=== PATIENT | male | born 1970 | race Caucasian/White ===

== ENCOUNTER 2024-03-27 08:27 | Inpatient (IN) | payer BC ==
[2024-03-27] MEDS ORDERED: Magnesium Sulfate 2gm IVPB 2 G/50 ML BAG IV ONE (08:44)
[2024-03-27] MEDS ORDERED: DIPHENHYDRAMINE 50 MG/ML VIAL ONE (08:44)
[2024-03-27] MEDS ORDERED: METOCLOPRAMIDE 10 MG/2mL INJ ONE (08:44)
[2024-03-27] MEDS ORDERED: NA CHLORIDE 0.9% 1,000 ML ONE (08:45)
[2024-03-27] MEDS ORDERED: NA CHLORIDE 0.9% 50 ML ONE (08:45)
[2024-03-27 08:46] LABS: Absolute Basophils 0.1 K/uL (0-0.5); Absolute Eosinophils 0.3 K/uL (0-0.5); Absolute Lymphocytes (CBC) 3.2 K/uL (0.7-4.9); Absolute Monocytes 0.8 K/uL (0.1-1.3); Absolute Neutrophil 5.4 K/uL (1.8-8.0); Basophils % 1.2 % (0-1.3); Hemoglobin 16.7 g/dL (13.6-17.9); Lymphocytes % 32.5 % (15.3-44.8); MCH 30.6 pg (27.0-35.0); MCHC 34.1 g/dL (32.0-36.0); MCV 89.6 fL (80-100); MPV 6.8 fL (7.6-11.3); Monocytes % 7.9 % (3.3-12.3); Neutrophils % 55.4 % (41.7-73.7); Nucleated Red Blood Cells % 0.3 % (0-0); Platelets 375 thou/uL (152-406); RBC Red Blood Cell Count 5.46 M/uL (4.33-5.43); Red Cell Distribution Width 13.7 % (12.1-15.2)
--- NOTE | 2024-03-27 08:58 | RAD REPORT ---
EXAM: CT Ct Stroke Brain Wo Cont HISTORY: STROKE ALERT COMPARISON: None TECHNIQUE: Multiple contiguous axial images were obtained for a CT of the brain without contrast. Sag ittal and coronal reformats were performed. One or more of the following dose reduction techniques were used: Automated exposure control, adjus tment of the mA and kV according to patient size, and iterative reconstruction. Unless otherwise specified, incidental findings do not require dedicated imaging follow-up. FINDINGS: No evidence of hydrocephalus, intracranial hemorrhage, or extra-axial fluid collection. The brain is normal in morphology. The calvarium is intact. The visualized paranasal sinuses and mastoid air cells are essentially clear . IMPRESSION: No evidence of acute intracranial abnormality. THIS REPORT CONTAINS FINDINGS THAT MAY BE CRITICAL TO PATIENT CARE. The findings were verbally commun icated via telephone to Pepe Buckley on 03/27/2024 8:55 AM.
[2024-03-27 08:59] LABS: PTT, Activated Partial Thromb 38.5 SECONDS (24.3-36.9)
--- NOTE | 2024-03-27 09:03 | RAD REPORT ---
EXAMINATION: CTA HEAD CLINICAL INDICATION: Male, 53 years old. samuel, l sided weakness TECHNIQUE: Axial CT images were obtained through the head after intravenous contrast utilizing angiog raphic protocol with 3D post-processing (maximum intensity projection images, volume rendered images and/or shaded surface rendered images). One or more of the following dose reduction technique s were used: Automated exposure control, adjustment of the mA and/or kV according to patient size, and/or iterative reconstruction. Unless otherwise specified, incidental findings do not require dedic ated imaging follow-up. COMPARISON: No prior exam. FINDINGS: ICA: The petrous, cavernous, and supraclinoid segments of the bilateral internal carotid arteries are normal. JEAN: Anterior cerebral arteries are normal bilaterally. The anterior communicating artery is patent. MCA: Middle cerebral arteries are normal bilaterally. LABORATORY MONITOR: Posterior cerebral arteries are patent bilaterally, although with mild to moderate multifocal na rrowing along the P1 segments bilaterally and distal right P2 segment. Vertebrobasilar: The vertebral arteries are patent. The basilar artery is normal in appearance. 3D images confirm these findings. IMPRESSION: No evidence of large vessel occlusion. Multifocal mild to moderate narrowing along the bilateral P1 segments and distal right P2 segment of the posterior cerebral arteries. Anterior mentasta of Perdomo vessels appear patent.
[2024-03-27 09:04] LABS: PT Prothrombin Time 12.7 SECONDS (9.4-12.5); Protime INR 1.21
--- NOTE | 2024-03-27 09:04 | RAD REPORT ---
EXAMINATION: CT Neck Angio CLINICAL INDICATION: Male, 53 years old. [facility] MAIN headache, left sided weakness Bed Name: 2 TECHNIQUE: Axial CT images were obtained from the aortic arch to the skull base after intravenous con trast utilizing angiographic protocol. Multiplanar reformats, as well as 3D post-processing (maximum intensity projection images, volume rendered images and/or shaded surface rendered images) w ere generated and reviewed. One or more of the following dose reduction techniques were used: Automated exposure control, adjustment of the mA and/or kV according to patient size, and/or iterativ e reconstruction. Unless otherwise specified, incidental findings do not require dedicated imaging follow-up. COMPARISON: No prior exam. FINDINGS: AORTA: The imaged aortic arch is normal. Normal three-vessel configuration of the arch. CCA: No artifact The common carotid arteries are patent and normal in caliber. ICA/ECA: Bilateral internal and external carotid arteries are patent. There is no significant interna l carotid artery stenosis. VERTEBRAL: The cervical vertebral arteries are patent to the skull base. Vertebral arteries are codom inant. SOFT TISSUE: No significant neck soft tissue abnormalities. The visualized lung apices are clear. C5-C7 anterior plating. 3D images confirm these findings. IMPRESSION: No significant flow abnormality of the neck vessels is identified. NASCET criteria used to quantify ICA stenosis, with the following grading scheme: Mild 0-49% stenosis Moderate 50-69% stenosis Severe 70-99% stenosis Reference: [place] Symptomatic Carotid Endarterectomy Trial Collaborators; Cathy VALDEZ, Khushbu CHAUHAN, Nadya RB, et al. Beneficial effect of carotid endarterectomy in symptomatic patients with high-grade carotid stenosis. N Engl J Med. 1990Sep 22;325(7):445-53.
[2024-03-27 09:11] LABS: Albumin 4.4 g/dL (3.4-5.0); Albumin/Globulin Ratio 1.3 (1.1-1.8); Anion Gap 9.9 mEq/L (5.0-15.0); Bilirubin Direct 0.2 mg/dL (0-0.2); Bilirubin Indirect, Calculated 0.3 mg/dL (0.2-0.8); Bilirubin Total 0.5 mg/dL (0.2-1.0); Globulin 3.5 g/dL (2.3-3.5); Magnesium 2.1 mg/dL (1.6-2.4); Potassium 3.9 mEq/L (3.5-5.1); Protein, Total 7.9 g/dL (6.4-8.2); Thyroid Stimulating Hormone 1.14 uIU/mL (0.358-3.740); Troponin High Sensitivity 16.7 pg/mL (<58.9)
--- NOTE | 2024-03-27 09:38 | RAD REPORT ---
EXAMINATION: ONE VIEW CHEST XR CLINICAL INDICATION: Male, 53 years old.,headache, left sided weakness TECHNIQUE: Frontal chest projection is submitted. Examination is limited by patient positioning and t echnique. COMPARISON: No prior exam. FINDINGS: The lungs are grossly clear although suboptimal inspiratory effort somewhat limits evaluation. No pn eumothorax or sizable effusion. The heart is normal in size. Mediastinal contours are unremarkable. IMPRESSION: No acute intrathoracic abnormalities.
[2024-03-27] MEDS ORDERED: ASPIRIN 325 MG TAB ONE (10:00)
--- NOTE | 2024-03-27 10:23 | EDPHYS ---
Physician Documentation [facility] Name: Bo Lehman Age: 53 yrs Sex: Male : 1970 Arrival Date: 03/27/2024 Time: 08:27 Bed 2 Private MD: ED Physician Pepe Buckley HPI: 03/27 09:35 This 53 yrs old Male presents to ER via Wheelchair with complaints of Vomiting, rt Headache. 09:35 Patient presents to the ED with 2 days of intermittent headache, left-sided weakness, rt numbness, spasticity. He had a speech disturbance during this time as well. Patient has been taking his migraine medicines to no relief. Denies other acute complaints at this time, symptoms are moderate in severity, no other aggravating or alleviating factors.. Historical: - Allergies: 08:37 unknown antibiotic, causes rash; ph - PMHx: 08:37 Hypothyroidism; Migraine; TIA; ph - Immunization history:: Adult Immunizations unknown. - Infectious Disease History:: Denies. - Social history:: Smoking status: unknown. ROS: 09:43 Constitutional: Negative for fever, chills, and weight loss, Cardiovascular: Negative rt for chest pain, palpitations, and edema, Respiratory: Negative for shortness of breath, cough, wheezing, and pleuritic chest pain, Skin: Negative for injury, rash, and discoloration, 09:43 Neuro: Positive for headache, speech changes, weakness, Exam: 09:43 Constitutional: This is a well developed, well nourished patient who is awake, alert, rt and in no acute distress. Head/Face: Normocephalic, atraumatic. Chest/axilla: Normal chest wall appearance and motion. Nontender with no deformity. No lesions are appreciated. Cardiovascular: Regular rate and rhythm with a normal S1 and S2. No gallops, murmurs, or rubs. Normal PMI, no JVD. No pulse deficits. Respiratory: Lungs have equal breath sounds bilaterally, clear to auscultation and percussion. No rales, rhonchi or wheezes noted. No increased work of breathing, no retractions or nasal flaring. Abdomen/GI: Soft, non-tender, with normal bowel sounds. No distension or tympany. No guarding or rebound. No evidence of tenderness throughout. 09:43 ECG was reviewed by the Attending Physician. 09:43 Neuro: Nonfluent speech noted, slight left-sided facial droop, spasticity noted to the left upper and left lower extremity, sensation is intact bilaterally. No other cranial nerve deficits, Vital Signs: 08:35 Pulse 105; Resp 20; Temp 97; Pulse Ox 97% on R/A; Weight 113.4 kg; Height 6 ft. 0 in. ; ko1 09:37 BP 140 / 83; Pulse 63; Pulse Ox 92% on R/A; rs6 19:15 BP 142 / 83; Pulse 65; Resp 18; Pulse Ox 100% on R/A; rg5 08:35 Body Mass Index 33.91 (113.40 kg, 182.88 cm) ko1 MDM: 08:36 Medical Screening Exam initiated rt 10:25 Differential diagnosis: Complex migraine, CVA, TIA. Data reviewed: vital signs, nurses rt notes, lab test result(s), EKG, radiologic studies. Consideration of Admission/Observation Patient was admitted/placed on observation. Management of patient was discussed with the following: Hospitalist: Agrees to admit. Independent interpretation of the following test(s) in the Emergency Department CT Scan: My interpretation is No intracranial hemorrhage seen on interpretation of CT scan images. Care significantly affected by the following chronic conditions: TIA, migraine. Counseling: I had a detailed discussion with the patient and/or guardian regarding the historical points, exam findings, and any diagnostic results supporting the discharge/admit diagnosis, lab results, radiology results, the need for further work-up and treatment in the hospital. Response to treatment: the patient's symptoms have resolved after treatment. 03/27 08:36 Order name: Basic Metabolic Panel; Complete Time: : rt 03/27 08:36 Order name: CBC with Diff; Complete Time: 09: rt 03/27 08:36 Order name: Hepatic Function; Complete Time: : rt 03/27 08:36 Order name: High Sensitivity Troponin; Complete Time: : rt 03/27 08:36 Order name: Magnesium; Complete Time: : rt 03/27 08:36 Order name: Protime (+inr); Complete Time: 09: rt 03/27 08:36 Order name: Ptt, Activated; Complete Time: 09: rt 03/27 08:36 Order name: CPK; Complete Time: 09: rt 03/27 08:36 Order name: TSH; Complete Time: 09:13 rt 03/27 09:04 Order name: CREATININE WHOLE BLOOD; Complete Time: 09:09 EDMS 03/27 12:07 Order name: NT PRO-BNP; Complete Time: 17:49 EDMS 03/27 12:07 Order name: T4 Free; Complete Time: 17:49 EDMS 03/27 12:07 Order name: Thyroid Stimulating Hormone; Complete Time: 17:49 EDMS 03/27 12:07 Order name: Urinalysis w/ reflexes EDMS 03/27 12:07 Order name: Basic Metabolic Panel EDMS 03/27 12:07 Order name: Basic Metabolic Panel EDMS 03/27 12:07 Order name: CBC with Automated Diff EDMS 03/27 12:07 Order name: CBC with Automated Diff EDMS 03/27 12:39 Order name: Troponin High Sensitivity EDMS 03/27 15:46 Order name: Troponin High Sensitivity; Complete Time: 17:49 EDMS 03/27 08:36 Order name: CT Head Angio; Complete Time: 09:09 rt 03/27 08:36 Order name: CT Neck Angio; Complete Time: 09:09 rt 03/27 08:36 Order name: CT Stroke Brain w/o Contrast; Complete Time: 09:09 rt 03/27 08:36 Order name: Stroke CXR 1 View; Complete Time: 09:49 rt 03/27 12:07 Order name: CONS Physician Consult EDMS 03/27 12:19 Order name: Physical Therapy Consult EDMS 03/27 08:36 Order name: Accucheck; Complete Time: 09:04 rt 03/27 08:36 Order name: Cardiac monitoring; Complete Time: 08:39 rt 03/27 08:36 Order name: EKG - Nurse/Tech; Complete Time: 09:33 rt 03/27 08:36 Order name: IV Saline Lock; Complete Time: 08:39 rt 03/27 08:36 Order name: Labs collected and sent; Complete Time: 08:39 rt 03/27 08:36 Order name: NPO; Complete Time: 08:39 rt 03/27 08:36 Order name: O2 Per Protocol; Complete Time: 08:39 rt 03/27 08:36 Order name: O2 Sat Monitoring; Complete Time: 08:39 rt 03/27 08:36 Order name: Stroke Swallow Screen; Complete Time: 09:33 rt EC:43 Rate is 66 beats/min. Rhythm is regular, 1st Degree Block with No ectopy. QRS [place] is rt Normal. LA interval is normal. QRS interval is normal. QT interval is normal. No Q waves. Clinical impression: NSR w/ Non-specific ST/T Changes. Administered Medications: 09:03 Drug: NS 0.9% IV 1000 ml IV at 1 bolus Per protocol; to be given as a bolus over 60 ph minutes Route: IV; Rate: 1 bolus; Site: right antecubital; 19:45 Follow up: IV Status: Completed infusion; IV Intake: 1000ml rg5 09:04 Drug: metoCLOPramide IVP 10 mg IVP once; over 1 to 2 minutes Route: IVP; Site: right antecubital; 09:19 Follow up: Response: No adverse reaction ko1 09:04 Drug: diphenhydrAMINE IVP 25 mg IVP once Route: IVP; Site: right antecubital; 09:19 Follow up: Response: No adverse reaction ko1 09:04 Drug: Magnesium Sulfate IVPB 2 grams IVPB once over 1 hrs Route: IVPB; Infused Over: 1 ph hrs; Site: right antecubital; 09:46 Follow up: Response: No adverse reaction; IV Status: Completed infusion; IV Intake: ko1 100ml 10:01 Drug: Aspirin PO 325 mg PO once Route: PO; ko1 19:45 Follow up: Response: No adverse reaction rg5 Disposition Summary: 03/27/24 10:21 Hospitalization Ordered Notes: Hospitalization Status: Observation rt Provider: Jean Brunson rt Condition: Stable rt Problem: new rt Symptoms: have improved rt Bed/Room Type: Standard rt Location: Telemetry/MedSurg (observation)(03/27/24 18:15) bd Room Assignment: 203(03/27/24 18:15) bd Diagnosis - left sided weakness rt Forms: - Medication Reconciliation Form rt - SBAR form rt - Leadership Thank You Letter rt Signatures: Dispatcher [employer] EDMS Sarah Stringer Patricia, RN RN ph Peltier, Brian, RN RN bp Oliver, Kathy, RN RN ko1 Pepe Buckley MD MD rt Chandan Amin RN rg5 Corrections: (The following items were deleted from the chart) 08:36 08:36 BASIC METABOLIC PANEL+C.LAB.BRZ ordered. EDMS EDMS 08:36 08:36 CBC+H.LAB.BRZ ordered. EDMS EDMS 08:36 08:36 HEPATIC FUNCTION+C.LAB.BRZ ordered. EDMS EDMS 08:36 08:36 Troponin High Sensitivity+C.LAB.BRZ ordered. EDMS EDMS 08:36 08:36 MAGNESIUM+C.LAB.BRZ ordered. EDMS EDMS 08:36 08:36 PROTIME (+INR)+COAG.LAB.BRZ ordered. EDMS EDMS 08:36 08:36 PTT, ACTIVATED+COAG.LAB.BRZ ordered. EDMS EDMS 08:36 08:36 CREATINE PHOSPHOKINASE+C.LAB.BRZ ordered. EDMS EDMS 08:36 08:36 THYROID STIMULAT HORMONE+C.LAB.BRZ ordered. EDMS EDMS 08:37 08:36 CT-STROKE BRAIN W/O CONTRAST+CT.RAD.BRZ ordered. EDMS EDMS 08:37 08:37 Chest Single View+RAD.RAD.BRZ ordered. EDMS EDMS 08:38 08:37 Home Meds: TIA; ph ph 12:13 10:21 Telemetry/MedSurg (observation) rt bp 12:13 10:21 rt bp 18:15 12:13 [facility] ER HOLD bp bd 18:15 12:13 ERHOLD- bp bd
--- NOTE | 2024-03-27 10:23 | ER ---
Nurse's Notes [facility] Name: Bo Lehman Age: 53 yrs Sex: Male : 1970 Arrival Date: 03/27/2024 Time: 08:27 Bed 2 Private MD: Diagnosis: left sided weakness Presentation: 03/27 08:35 Chief complaint: Patient states: Headache, trouble speaking, N/V and muscle spasms that ph started Wednesday, states that this has happened before and was dx w/ TIA and migraine, takes PRN medications for symptoms but did not help. Coronavirus screen: Vaccine status: Patient reports receiving the 2nd dose of the covid vaccine. Ebola Screen: No symptoms or risks identified at this time. Initial Sepsis Screen: Does the patient meet any 2 criteria? No. Patient's initial sepsis screen is negative. Does the patient have a suspected source of infection? No. Patient's initial sepsis screen is negative. Risk Assessment: Do you want to hurt yourself or someone else? Patient reports no desire to harm self or others. Onset of symptoms was March 27, 2024. 08:35 Method Of Arrival: Wheelchair ph 08:35 Acuity: MISHA 2 ph Historical: - Allergies: 08:37 unknown antibiotic, causes rash; ph - PMHx: 08:37 Hypothyroidism; Migraine; TIA; ph - Immunization history:: Adult Immunizations unknown. - Infectious Disease History:: Denies. - Social history:: Smoking status: unknown. Screenin:40 [facility] ED Fall Risk Assessment (Adult) History of falling in the last 3 months, ko1 including since admission No falls in past 3 months (0 pts) Confusion or Disorientation No (0 pts) Intoxicated or Sedated No (0 pts) Impaired Gait No (0 pts) Mobility Assist Device Used No (0 pt) Altered Elimination No (0 pt) Score/Fall Risk Level 0 - 2 = Low Risk Oriented to surroundings, Maintained a safe environment, Educated pt \T\ family on fall prevention, incl call for assistance when getting out of bed, Assessed \T\ reinforced patient's understanding of fall precautions, Hourly rounding (assess needs \T\ fall precautionary measures) done. Abuse screen: Denies threats or abuse. Denies injuries from another. Nutritional screening: No deficits noted. Tuberculosis screening: No symptoms or risk factors identified. Assessment: 08:42 General: Appears distressed, Behavior is cooperative, appropriate for age. Pain: ko1 Complains of pain in headache, generalized body spasms. Neuro: Taylor Agitation-Sedation Scale (RASS): 0 - Alert and Calm Level of Consciousness is awake, alert, obeys commands, Oriented to person, place, time, situation, Appropriate for age. Cardiovascular: No deficits noted. Respiratory: No deficits noted. GI: Abdomen is flat, non-distended. : No deficits noted. No signs and/or symptoms were reported regarding the genitourinary system. EENT: No deficits noted. No signs and/or symptoms were reported regarding the EENT system. Derm: No deficits noted. No signs and/or symptoms reported regarding the dermatologic system. Musculoskeletal: spasms. Vital Signs: 08:35 Pulse 105; Resp 20; Temp 97; Pulse Ox 97% on R/A; Weight 113.4 kg; Height 6 ft. 0 in. ; ko1 09:37 BP 140 / 83; Pulse 63; Pulse Ox 92% on R/A; rs6 19:15 BP 142 / 83; Pulse 65; Resp 18; Pulse Ox 100% on R/A; rg5 08:35 Body Mass Index 33.91 (113.40 kg, 182.88 cm) ko1 ED Course: 08:29 Patient arrived in ED. mr 08:35 Pepe Buckley MD is Attending Physician. rt 08:37 Triage completed. ph 08:38 Arm band placed on Patient placed in an exam room, on a stretcher, on monitoring engineer, ph on pulse oximetry. 08:39 CPK Sent. ko1 08:39 TSH Sent. ko1 08:39 Basic Metabolic Panel Sent. ko1 08:39 CBC with Diff Sent. ko1 08:39 Hepatic Function Sent. ko1 08:39 High Sensitivity Troponin Sent. ko1 08:39 Magnesium Sent. ko1 08:39 Protime (+inr) Sent. ko1 08:39 Ptt, Activated Sent. ko1 08:40 Patient has correct armband on for positive identification. Allergy band placed. Bed in ko1 low position. Call light in reach. Side rails up X2. Provided Education on: labs. Client placed on continuous cardiac and pulse oximetry monitoring. NIBP monitoring applied. monitor worker on. Door closed. Noise minimized. Lights dimmed. Warm blanket given. Pillow given. 08:40 Initial lab(s) drawn, by me, sent to lab. Inserted saline lock: 18 gauge in right ko1 antecubital area, using aseptic technique. Blood collected. Flushed with 10 mL NS. 08:42 Rhianna Whitley, RN is Primary Nurse. ko1 08:51 CT Head Angio In Process Unspecified. EDMS 08:51 CT Neck Angio In Process Unspecified. EDMS 08:51 CT Stroke Brain w/o Contrast In Process Unspecified. EDMS 09:22 Stroke CXR 1 View In Process Unspecified. EDMS 09:50 No provider procedures requiring assistance completed. ko1 10:19 Jean Brunson MD is Hospitalizing Provider. rt 13:19 Patient admitted, IV remains in place. bp 19:15 Patient admitted, IV remains in place. intact, No redness/swelling at site. rg5 Administered Medications: 09:03 Drug: NS 0.9% IV 1000 ml IV at 1 bolus Per protocol; to be given as a bolus over 60 ph minutes Route: IV; Rate: 1 bolus; Site: right antecubital; 19:45 Follow up: IV Status: Completed infusion; IV Intake: 1000ml rg5 09:04 Drug: metoCLOPramide IVP 10 mg IVP once; over 1 to 2 minutes Route: IVP; Site: right antecubital; 09:19 Follow up: Response: No adverse reaction ko1 09:04 Drug: diphenhydrAMINE IVP 25 mg IVP once Route: IVP; Site: right antecubital; ph 09:19 Follow up: Response: No adverse reaction ko1 09:04 Drug: Magnesium Sulfate IVPB 2 grams IVPB once over 1 hrs Route: IVPB; Infused Over: 1 ph hrs; Site: right antecubital; 09:46 Follow up: Response: No adverse reaction; IV Status: Completed infusion; IV Intake: ko1 100ml 10:01 Drug: Aspirin PO 325 mg PO once Route: PO; ko1 19:45 Follow up: Response: No adverse reaction rg5 Medication: 09:50 VIS not applicable for this client. ko1 Intake: 09:46 IV: 100ml; Total: 100ml. ko1 19:45 IV: 1000ml; Total: 1100ml. rg5 Output: 10:14 Urine: 700ml (Voided); Total: 700ml. ko1 Outcome: 10:21 Decision to Hospitalize by Provider. rt 13:19 Admitted to ER Hold. Please see [facility] for further documentation. bp 13:19 Condition: stable 13:19 Instructed on the need for admit, 19:44 Patient left the ED. rg5 Signatures: Dispatcher [employer] EDMS Magaly Lara, Reg Reg mr ThurstonBlank, RN RN ph Wilfred Earl, RN RN bp Rhianna Whitley RN RN ko1 Pepe Buckley MD MD rt Chandan Amin RN RN rg5 Pepe Mcpherson rs6 Corrections: (The following items were deleted from the chart) 08:38 08:37 Home Meds: TIA; ph ph 08:44 08:35 Pulse 211bpm; Resp 20bpm; Pulse Ox 97% RA; Temp 97F; 113.4 kg; Height 6 ft. 0 ko1 in.; BMI: 33.9; ph 09:50 09:50 BP 140 / 83; Pulse 65bpm; Resp 15bpm; Pulse Ox 98%; ko1 ko1
[2024-03-27] MEDS ORDERED: ACETAMINOPHEN 500 MG TAB PO PRN (11:49)
[2024-03-27] MEDS ORDERED: ONDANSETRON 4 MG/2 ML VIAL IV PRN (11:49)
--- NOTE | 2024-03-27 12:39 | P.HP ---
Certification for Inpatient Patient admitted to: Inpatient With expected LOS: >2 Midnights Patient will require the following post-hospital care: None Practitioner: I am a practitioner with admitting privileges, knowledge of patient current condition, hospital course, and medical plan of care. Services: Services provided to patient in accordance with Admission requirements found in Title 42 Section 412.3 of the Code of Federal Regulations Patient History Date of Service: 03/27/24 Reason for admission: Headache, left-sided weakness History of Present Illness: Patient is a 53-year-old male with a past medical history significant for hypothyroidism, TIA, complex migraine headache who presents with complaint of headache and left-sided weakness. Patient reports a remote history of complex migraine headache and had similar presentations a couple of years ago. Patient reported that 2 days ago he started experiencing episodes of headache, generalized muscle spasticity, left-sided weakness, intermittent expressive aphasia and slurred speech. Patient reported that he was unable to ambulate. Patient reported associated signs and symptoms of blurry vision, dizziness, nausea and vomiting. Patient reported that symptoms abated 2 days ago but this morning patient had a resurgence of symptoms. Patient denies any other signs and symptoms. Symptoms are aggravated or relieved by nothing. Patient decided to present to the hospital for medical evaluation. Allergies No Known Allergies Allergy (Unverified 03/27/24 13:19) Home medications list reviewed: No - Past Medical/Surgical History Has patient received pneumonia vaccine in the past: No Diabetic: No Past Medical History: Reviewed- Non-Contributory -: Complex migraine headache -: Hypothyroidism -: TIA. Past Surgical History: Reviewed- Non-Contributory -: Cervical fusion - Social History Smoking Status: Current some day smoker (Smokes cigars) Counseled patient to stop smoking for: less than 10 minutes Smoking therapy provided: Yes Patient receptive to therapy: Yes Alcohol use: No CD- Drugs: No Caffeine use: No Place of Residence: Home Review of Systems General: Weakness Eyes: Vision Change ENT: Unremarkable Respiratory: Shortness of Breath Cardiovascular: Unremarkable Gastrointestinal: Nausea, Abdominal Pain Genitourinary: Unremarkable Musculoskeletal: Unremarkable Integumentary: Unremarkable Neurological: Weakness, Change in Speech Lymphatics: Unremarkable Physical Examination - Physical Exam General: Alert, In no apparent distress, Oriented x3, Cooperative HEENT: Atraumatic, PERRLA, Mucous membr. moist/pink, EOMI, Sclerae nonicteric Neck: Supple, 2+ carotid pulse no bruit, No LAD, Without JVD or thyroid abnormality Respiratory: Clear to auscultation bilaterally, Normal air movement Cardiovascular: No edema, Regular rate/rhythm, Normal S1 S2 Capillary refill: <2 Seconds Gastrointestinal: Normal bowel sounds, Soft and benign, No tenderness Musculoskeletal: No clubbing, No swelling, No contractures, No tenderness Integumentary: No rashes, No significant lesion, No tenderness/swelling Neurological: Normal strength at 5/5 x4 extr, Normal tone, Normal affect, Abnormal gait, Abnormal speech Lymphatics: No axilla or inguinal lymphadenopathy - Studies Laboratory Data (last 24 hrs) 03/27/24 03/27/24 03/27/24 08:35 08:35 08:35 WBC 9.70 Hgb 16.7 Hct 49.0 Plt Count 375 PT 12.7 H INR 1.21 APTT 38.5 H Sodium 137 Potassium 3.9 BUN 19 H Creatinine 1.04 Glucose 113 H Magnesium 2.1 Total Bilirubin 0.5 AST 19 ALT 27 Alkaline Phosphatase 91 Assessment and Plan - Plan Left-sided weakness TIA Complex migraine headache Muscle spasticity --CT stroke brain unremarkable for any acute intracranial abnormality. --CTA head\Neck unremarkable for any LVO or stenosis. --Neurology consulted. Recommendations appreciated. --PT eval and treat. --Continue Fioricet and Tylenol as needed. --Echocardiogram to assess for any cardioembolic source of TIA . --Further management per neurologist. --Fall precautions. Hypothyroidism --Continue home medications. Nausea and vomiting. --Antiemetic on board Nicotine dependence. --Patient reports that he smokes cigars. --Patient counseled on tobacco cessation. Class I obesity. --Likely secondary to excess caloric intake. --Patient counseled on weight reduction, diet and excise therapy. DVT prophylaxis with Lovenox subQ. Discharge Plan: Home Plan to discharge in: 72 Hours - Advance Directives Does patient have a Living Will: No Does patient have a Durable POA for Healthcare: No - Code Status/Comfort Care Code Status Assessed: Yes Code Status: Full Code Physician Review: Patient Assessed, Agree with Above Assessment and Plan Critical Care: No
[2024-03-27 15:45] LABS: Thyroid Stimulating Hormone 1.84 uIU/mL (0.358-3.740); Troponin High Sensitivity 19.3 pg/mL (<58.9)
[2024-03-27 16:54] VITALS: BMI 33.9
[2024-03-27] MEDS: ENOXAPARIN 40 MG/0.4 ML SQ SCH (17:00)
[2024-03-27] MEDS: MORPHINE 4 MG/ML SYR IV ONE (20:04)
[2024-03-27 20:05] VITALS: O2SAT 92
[2024-03-27] MEDS: HYDROCODONE/APAP 10/325 TAB PO PRN (23:02)
[2024-03-28 05:16] LABS: Absolute Basophils 0.1 K/uL (0-0.5); Absolute Eosinophils 0.4 K/uL (0-0.5); Absolute Lymphocytes (CBC) 3.7 K/uL (0.7-4.9); Absolute Monocytes 0.6 K/uL (0.1-1.3); Absolute Neutrophil 4.5 K/uL (1.8-8.0); Basophils % 1.2 % (0-1.3); Eosinophils % 4.7 % (0-4.4); Hematocrit 41.7 % (39.6-49.0); Hemoglobin 14.2 g/dL (13.6-17.9); Lymphocytes % 39.6 % (15.3-44.8); MCH 30.8 pg (27.0-35.0); MCHC 34.2 g/dL (32.0-36.0); MCV 90.1 fL (80-100); Monocytes % 6.4 % (3.3-12.3); Neutrophils % 48.1 % (41.7-73.7); Platelets 305 thou/uL (152-406); RBC Red Blood Cell Count 4.63 M/uL (4.33-5.43); Red Cell Distribution Width 13.9 % (12.1-15.2)
[2024-03-28 05:30] LABS: Anion Gap 6.2 mEq/L (5.0-15.0); Potassium 4.2 mEq/L (3.5-5.1)
--- NOTE | 2024-03-28 07:23 | RAD REPORT ---
EXAM: CT brain without contrast HISTORY: Dysarthria COMPARISON: March 27, 2024 TECHNIQUE: Multiple contiguous axial images were obtained and a CT of the brain without contrast.. Sagittal and coronal reconstruction performed. Automated exposure control, adjustment of the mA and/or kV according to patient size, and/or iterative reconstruction. Unless otherwise specified, incidental f indings do not require dedicated imaging follow-up FINDINGS: An intracranial bleed is not seen Ventricles are normal caliber No extra-axial fluid collection noted No significant hypodensity within the brain No fluid within the visualized sinuses or mastoids noted. IMPRESSION: No acute intracranial abnormality noted. If the patient continues to have symptoms to suggest an acute intracranial abnormality then MRI of th e brain would be recommended.
[2024-03-28] MEDS: ASPIRIN 81 MG CHEWABLE TABLET PO SCH (08:35)
[2024-03-28] MEDS: ACETAMIN/CAFFEINE/BUTALB TAB PO PRN (09:22)
[2024-03-28] MEDS: Magnesium Sulfate 2gm IVPB 2 G/50 ML BAG IV ONE ×2 (09:25→17:08)
--- NOTE | 2024-03-28 09:27 | P.PN ---
Date of Service: 03/28/24 Subjective During examination, patient started muscle cramping to left hand and left leg Called Dr. Ba, administered depakote, magnesium, and valium, EEG in the AM 2 gm magnesium IV 1 gram depakote IV 5 mg diazapem ROS 10 point ROS as noted above, otherwise negative Physical Exam General: Alert and Oriented x3, distress HEENT: Atraumatic, PERRLA, Mucous membr. moist/pink, EOMI, Sclerae nonicteric Neck: Supple, 2+ carotid pulse no bruit, No LAD, Without JVD or thyroid abnormality Respiratory: Clear BBS Normal air movement, on NC Cardiovascular: No edema, RRR Normal S1 S2 Capillary refill: <2 Seconds Gastrointestinal: Normal active bowel sounds, Soft on palpation, NT Musculoskeletal: bilateral peripheral pulses present Integumentary: No rashes, No significant lesion, No tenderness/swelling Neurological: Seizure activity, left sided muscle Vitals Reviewed Problem list Left-sided weakness CVA vs TIA ruled out Complex migraine headache Seizure activity Muscle spasticity Hypothyroidism Nausea and vomiting Nicotine dependence Class I obesity Assessment and Plan Left-sided weakness CVA vs TIA ruled out Complex migraine headache Seizure activity Muscle spasticity -CT stroke brain unremarkable for any acute intracranial abnormality. -CTA head\\Neck unremarkable for any LVO or stenosis. -MRI head W/Wo contrast reports "No acute intracranial abnormality seen." --Neurology consulted. Recommended depakote, mangesium, valium, EEG in the AM --PT consulted --Continue Fioricet and Tylenol as needed --Echocardiogram to assess for any cardioembolic source of TIA --Fall precautions Hypothyroidism --Continue home medications Nausea and vomiting -Antiemetics -advanced diet as tolerated Nicotine dependence --Patient reports that he smokes cigars --Patient counseled on tobacco cessation Class I obesity --Likely secondary to excess caloric intake --Patient counseled on weight reduction, diet and excise therapy DVT prophylaxis with Lovenox subQ Discharge Plan: Home Plan to discharge in: 1-2 days
[2024-03-28] MEDS: DIVALPROEX DR 250 MG TAB PO SCH (09:30)
[2024-03-28] MEDS: MAGNESIUM SULFATE 1 gm IVPB 1 GM/100 ML BAG IV ONE ×2 (09:34→09:45)
[2024-03-28] MEDS: DIAZEPAM 10 MG/2 ML INJ SYRINGE IV ONE ×2 (09:34→16:57)
[2024-03-28] MEDS: VALPROATE SODIUM IV ONE (09:43)
[2024-03-28] MEDS: NA CHLORIDE 0.9% IV ONE (09:43)
[2024-03-28] MEDS ORDERED: VALPROATE SODIUM IV SCH ×2 (09:45→21:00)
[2024-03-28] MEDS ORDERED: NA CHLORIDE 0.9% IV SCH ×2 (09:45→21:00)
--- NOTE | 2024-03-28 11:47 | RAD REPORT ---
EXAMINATION: MRI BRAIN WITHOUT AND WITH CONTRAST CLINICAL INDICATION: Aphasia TECHNIQUE: Multiplanar multisequence MR images of the brain were obtained without and with intravenous contrast. 20 cc MultiHance administered intravenously. COMPARISON: Head CT March 28, 2023 FINDINGS: No significant abnormal signal within the brain. Diffusion weighted/ADC mapping images do not reveal evidence of an acute infarction No abnormal enhancement within the brain visualized. Ventricles are normal caliber No extra-axial fluid collection No fluid within the visualized sinuses/mastoids. IMPRESSION: No acute intracranial abnormality seen.
[2024-03-28] MEDS: carBAMazepine 200 MG TAB PO SCH (17:31)
[2024-03-28 18:01] LABS: Magnesium 3.1 mg/dL (1.6-2.4); Phosphorus 2.9 mg/dL (2.5-4.9)
[2024-03-28] MEDS: NA CHLORIDE 0.9% IV SCH (20:40)
[2024-03-28] MEDS: VALPROATE SODIUM IV SCH (20:40)
[2024-03-29] MEDS: LORazepam 2 MG/ML VIAL ONE (02:55)
[2024-03-29] MEDS: LORazepam 2 MG/ML VIAL IV ONE (03:04)
[2024-03-29] MEDS: LEVOTHYROXINE SOD 0.112 MG TAB PO SCH (05:42)
[2024-03-29 05:43] LABS: Anion Gap 7.1 mEq/L (5.0-15.0); Magnesium 2.3 mg/dL (1.6-2.4); Phosphorus 2.5 mg/dL (2.5-4.9); Potassium 4.1 mEq/L (3.5-5.1)
[2024-03-29 05:59] LABS: Absolute Basophils 0.1 K/uL (0-0.5); Absolute Eosinophils 0.5 K/uL (0-0.5); Absolute Lymphocytes (CBC) 2.7 K/uL (0.7-4.9); Absolute Monocytes 0.6 K/uL (0.1-1.3); Absolute Neutrophil 3.8 K/uL (1.8-8.0); Basophils % 1.2 % (0-1.3); Hematocrit 44.2 % (39.6-49.0); Hemoglobin 14.9 g/dL (13.6-17.9); Lymphocytes % 35.6 % (15.3-44.8); MCH 30.3 pg (27.0-35.0); MCHC 33.7 g/dL (32.0-36.0); MCV 90.1 fL (80-100); MPV 7.4 fL (7.6-11.3); Monocytes % 7.3 % (3.3-12.3); Neutrophils % 49.9 % (41.7-73.7); Nucleated Red Blood Cells % 0.2 % (0-0); Platelets 347 thou/uL (152-406); RBC Red Blood Cell Count 4.91 M/uL (4.33-5.43); Red Cell Distribution Width 13.7 % (12.1-15.2)
[2024-03-29] MEDS ORDERED: DIVALPROEX DR 500MG TAB PO SCH (07:00)
[2024-03-29] MEDS: DIAZEPAM 10 MG/2 ML INJ SYRINGE ONE (07:56)
[2024-03-29] MEDS: Magnesium Sulfate 2gm IVPB 2 G/50 ML BAG IV ONE (08:19)
[2024-03-29] MEDS: POTASS/SODIUM PHOSPHATE 1 PKT POWD.PACK PO SCH (12:02)
--- NOTE | 2024-03-29 12:33 | P.PN ---
Date of Service: 03/29/24 Subjective Multiple left extremity contractions with seizure like activity EEG during an episode, Joshua reports no seizure activity at that time, oxygen level stable during episode Dr. Ba called, he will further evaluate EEG results and provide further recommendations Treated with IV magnesium 2 gram and diazepam ROS 10 point ROS as noted above, otherwise negative Physical Exam General: AAO x3, distress HEENT: Atraumatic, PERRLA, MMM, EOMI Neck: Supple, 2+ carotid pulse no bruit, No LAD, Without JVD or thyroid abnormality Respiratory: Nonlabored breathing, Clear BBS, on NC Cardiovascular: No edema, RRR Normal S1 S2 Capillary refill: <2 Seconds Gastrointestinal: Normal active bowel sounds, Soft on palpation, NT Musculoskeletal: bilateral peripheral pulses present Integumentary: No rashes, No significant lesion, No tenderness/swelling Neurological: Seizure activity, left sided muscle contraction Vitals Reviewed Problem list Left-sided weakness CVA vs TIA ruled out Complex migraine headache Seizure activity Muscle spasticity Hypothyroidism Nausea and vomiting Nicotine dependence Class I obesity Assessment and Plan Left-sided weakness CVA vs TIA ruled out Complex migraine headache Seizure activity Muscle spasticity -CT stroke brain unremarkable for any acute intracranial abnormality. -CTA head\\Neck unremarkable for any LVO or stenosis. -MRI head W/Wo contrast reports "No acute intracranial abnormality seen." --Neurology consulted. Recommended depakote, mangesium, valium, EEG Results pending --PT consulted --Continue Fioricet and Tylenol as needed --Echocardiogram to assess for any cardioembolic source of TIA --Fall precautions Hypothyroidism --Continue home medications Nausea and vomiting -Antiemetics -advanced diet as tolerated Nicotine dependence --Patient reports that he smokes cigars --Patient counseled on tobacco cessation Class I obesity --Likely secondary to excess caloric intake --Patient counseled on weight reduction, diet and excise therapy Interval hospital course: 03/29/24 Continued seizure like episodes associated with headache Will continue to treat with magnesium IV, diazepam, depakote, and tegratol Dr. Ba will decide on Qulipta or ubrelvy and will review EEG results EEG this morning during episode, joshua reports no seizure activity at that time DVT prophylaxis with Lovenox subQ Discharge Plan: Home Plan to discharge in: 1-2 days
--- NOTE | 2024-03-29 14:29 | EEG ---
CHART: [id number] TEST ID#: [id number] DATE OF STUDY: 03/29/2024 THE EEG WAS RECORDED PORTABLE IN THE PATIENT'S ROOM ON A 17 CHANNEL MACHINE. ELECTRODES WERE APPLIED IN THE USUAL MANNER USING THE INTERNATIONAL 10-20 SYSTEM. THE WAKING BACKGROUND RHYTHM IN THIS RECORD CONSISTS OF VERY WELL DEVELOPED AND WELL ORGANIZED WAVES OF 8.5-9 HZ., MAXIMAL IN THE POSTERIOR HEAD REGIONS WHICH ATTENUATE NORMALLY WITH EYE OPENING. LOW-VOLTAGE 18-22 HZ IS EXPRESSED IN THE FRONTAL REGIONS. THERE ARE NO FOCAL OR LATERALIZING FEATURES. NO EPILEPTIFORM ACTIVITY APPEARS. SLEEP DID NOT OCCUR. HYPERVENTILATION WAS NOT PERFORMED. PHOTIC STIMULATION PRODUCED NO DRIVING BILATERALLY. IMPRESSION: NORMAL EEG FOR THE AGE OF THE PATIENT IN [place].
--- NOTE | 2024-03-29 15:24 | P.DS ---
Admission Date: 03/27/24 Discharge Date: 03/29/24 Disposition: ROUTINE DISCHARGE Reason for Admission: Headache, left-sided weakness Brief History of Present Illness: Diagnosis Left-sided weakness CVA vs TIA ruled out Complex migraine headache Seizure activity Muscle spasticity Hypothyroidism Nausea and vomiting Nicotine dependence Class I obesity [facility] 03/27/2024 Patient is a 53-year-old male with a past medical history significant for hypothyroidism, TIA, complex migraine headache who presents with complaint of headache and left-sided weakness. Patient reports a remote history of complex migraine headache and had similar presentations a couple of years ago. Patient reported that 2 days ago he started experiencing episodes of headache, generalized muscle spasticity, left-sided weakness, intermittent expressive a phasia and slurred speech. Patient reported that he was unable to ambulate. Patient reported associated signs and symptoms of blurry vision, dizziness, nausea and vomiting. Patient reported that symptoms abated 2 days ago but this morning patient had a resurgence of symptoms. Patient denies any other signs and symptoms. Symptoms are aggravated or relieved by nothing. Patient decided to present to the hospital for medical evaluation. Hospital Course: Patient was admitted and treated for the following diagnoses Left-sided weakness CVA vs TIA ruled out Complex migraine headache Seizure activity Muscle spasticity -CT stroke brain unremarkable for any acute intracranial abnormality. -CTA head\\Neck unremarkable for any LVO or stenosis. -MRI head W/Wo contrast reports "No acute intracranial abnormality seen." --Neurology consulted. Recommended depakote, mangesium, valium, EEG Results pending --PT consulted --Continue Fioricet and Tylenol as needed --Echocardiogram to assess for any cardioembolic source of TIA --Fall precautions Hypothyroidism --Continue home medications Nausea and vomiting -Antiemetics -advanced diet as tolerated Nicotine dependence --Patient reports that he smokes cigars --Patient counseled on tobacco cessation Class I obesity --Likely secondary to excess caloric intake --Patient counseled on weight reduction, diet and excise therapy On 03/29/2024, Bo was seen on morning rounds and deemed hemodynamically stable. Dr. Ba has evaluated and cleared for discharge. Verapamil 40 mg 3 times daily has been sent to the pharmacy, and Bo will go to Dr. 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 Physical Exam General: AAO x3, distress HEENT: Atraumatic, PERRLA, MMM, EOMI Neck: Supple, 2+ carotid pulse no bruit, No LAD, Without JVD or thyroid abnormality Respiratory: Nonlabored breathing, Clear BBS, on NC Cardiovascular: No edema, RRR Normal S1 S2 Capillary refill: <2 Seconds Gastrointestinal: Normal active bowel sounds, Soft on palpation, NT Musculoskeletal: bilateral peripheral pulses present Integumentary: No rashes, No significant lesion, No tenderness/swelling Neurological: Seizure activity, left sided muscle contraction Vital Signs/Physical Exam: Temp Pulse Resp BP Pulse Ox 98.0 F 69 16 119/74 98 03/29/24 12:00 03/29/24 12:00 03/29/24 12:00 03/29/24 12:00 03/29/24 12:00 Laboratory Data at Discharge: WBC 7.50 thou/uL (4.3-10.9) 03/29/24 05:01 Hgb 14.9 g/dL (13.6-17.9) 03/29/24 05:01 Hct 44.2 % (39.6-49.0) 03/29/24 05:01 Plt Count 347 thou/uL (152-406) 03/29/24 05:01 PT 12.7 SECONDS (9.4-12.5) H 03/27/24 08:35 INR 1.21 03/27/24 08:35 APTT 38.5 SECONDS (24.3-36.9) H 03/27/24 08:35 Sodium 137 mEq/L (136-145) 03/29/24 05:01 Potassium 4.1 mEq/L (3.5-5.1) 03/29/24 05:01 BUN 13 mg/dL (7-18) 03/29/24 05:01 Creatinine 0.85 mg/dL (0.70-1.30) 03/29/24 05:01 Glucose 97 mg/dL (74-106) 03/29/24 05:01 Phosphorus 2.5 mg/dL (2.5-4.9) 03/29/24 05:01 Magnesium 2.3 mg/dL (1.6-2.4) 03/29/24 05:01 Total Bilirubin 0.5 mg/dL (0.2-1.0) 03/27/24 08:35 AST 19 U/L (15-37) 03/27/24 08:35 ALT 27 U/L (16-61) 03/27/24 08:35 Alkaline Phosphatase 91 U/L (45-117) 03/27/24 08:35 LDL Cholesterol Direct Cancelled 03/28/24 Unknown Lipase 23 U/L (13-75) 03/28/24 17:37 Home Medications: Levothyroxine [Synthroid*] 220 mcg PO [id number] 03/28/24 Verapamil HCl [Calan*] 40 mg PO TID 30 Days #90 tab 03/29/24 New Medications: Verapamil HCl [Calan*] 40 mg PO TID 30 Days #90 tab Physician Discharge Instructions: 1. Please call and schedule a follow-up appointment with your PCP in 3-5 days - Please follow-up with your PCP for medication refills/adjustments 2. Please call and schedule a follow-up appointment with Dr. 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 Continue regular diet 4. activity restrictions fall precautions 5. Return to the ED if symptoms worsen DO NOT DRIVE UNTIL CLEARED BY NEUROLOGY New medications Verapamil 40 mg 3 times daily, please be certain with the milligrams per tablet Diet: Regular Activity: Fall precautions Followup: Juan J Hair MD [Primary Care Provider] - Valdez Ba MD [ASSOCIATE-ACTIVE - CAN ADMIT] -
[2024-03-29] MEDS: VERAPAMIL HCL 80 MG TABLET PO SCH (16:08)
[2024-03-29 16:10] VITALS: BP 125/71
[2024-03-29 17:27] VITALS: TEMP 97.6
--- NOTE | 2024-03-29 19:45 | CON ---
Reason For Consultation: Consultation called because of seizure-like activity with migraine. History Of Present Illness: Mr. Lehman is a 53-year-old right-handed patient with reporte d history of complex migraines, hypothyroidism, and transient ischemic attack, who has had periodic p aroxysmal episodes of dystonic like activity involving the left arm, face, and at times legs that act ually always occur in the setting of headaches. These have been occurring for decades. He said the episodes may be triggered during cold weather and often consists of the left hand beginning to draw i n, in terms of the fingers. He has flexion of the wrist. There is flexion of the forearm and the samuel nd may come towards his face. He may have some twisting of the left side of his face and the inabili ty to express words, although he is aware of what he wants to say, but his face appears to lock up an d he cannot get the words out. His left leg may also have episodes of stiffness and the inability to move it freely. During these episodes, he can still force through purposeful activity of the left s lyudmila and he has full memory of the events and he is able to think clearly. He has no tongue biting or loss of bowel and bladder control. The episodes may last several minutes and eventually ease and he has no post event confusion. The current episode began intermittently around Wednesday with the migr hanny and then the episodes of spreading tonic activity that is really dystonic more than tonic like a seizure and not rhythmic. They may be a mild tremor with it. His CT scan of the head and CT angiog meka of head and neck are all unremarkable. His brain MRI shows no acute ischemic or hemorrhagic farfan ges. No evidence of any prior strokes identified. He had an electroencephalogram during typical epi sode and there was no epileptiform discharge during that activity, just muscle artifact was noted. T hat event was therefore nonepileptic. His laboratory studies included a normal complete blood count with differential panel. INR 1.21. His basic metabolic panel showed initially slightly elevated chl oride and slightly low calcium, now normalized. Magnesium normal. Lactic acid is normal. His liver function studies are normal. Cholesterol LDL of 99 and his TSH 1.840. His free T4 is elevated to 1 .52. Urinalysis unremarkable. Past Medical History: As noted above. Allergies: NO KNOWN DRUG ALLERGIES. Family History: Denies family history of migraine, seizures, or dystonia. Denies any history of hea d trauma with loss of consciousness. Past Surgical History: None. Review of Systems: Aside from mentioned where he has the headache and the inability to get his words out and paroxysmal episodes of dystonic like activity, there are no other positives on a 10-point systems review. Physical Examination: Vital Signs: Blood pressure 119/74, pulse 69, respiratory rate 16, temperature 98.0, oxygen saturati on 98%. General: Mr. Lehman is lying in bed. His is at bedside. HEENT: He is normocephalic, atraumatic. Sclerae anicteric. Oropharynx pink, moist. Neck: Supple. Chest: Clear. Heart: Regular. Extremities: Show no clubbing, cyanosis, or edema. Neurological: He is alert and oriented to person, place, time, situation. Follows all commands appr opriately. Normal cranial nerves. Normal articulation that is labial, lingual, and guttural sounds. Motor examination, upper and lower extremity 5/5. Sensory exam intact in upper and lower extremiti es. Coordination intact, upper and lower extremities. His reflexes are symmetric and unremarkable. Gait good stance, right arm swing. Assessment And Plan: Mr. Lehman is a 53-year-old patient with hypertension in addition to having pa roxysmal dystonic migraine. He was treated in the past with Depakote and Topamax, which did decrease the frequency of his migraines and the recurrence of the dystonic episodes. However, there are time s when he would be free of events for several months and in the apparent cold weather, there may be r ecurrent episodes. At this point, his neurological examination is normal and he now will be treated with migraine prophylaxis with verapamil and acetazolamide. We will also have Qulipta on board and Capo avliez. He will follow up in Dr. Ba's office for samples and prescriptions of Qulipta and Gavinre tany. He should be maintaining good hydration, 8 glasses of water daily and regular exercise, 30 katiuska jessi brisk activity. Heart rate is elevated. He is sweating with winded conversation. He if need be may have an ambulatory EEG monitoring to finalize an unremarkable brain activity during m ultiple episodes. He did have 1 captured with a routine EEG which was normal. The patient may be di scharged today and follow up in clinic with Dr. Ba. DIANA/JOSE MARTIN Voice ID: [id number] Report ID: [id number]
--- NOTE | 2024-03-30 07:33 | ECHO ---
HEIGHT: 6 ft 0 in WEIGHT: 250 lb 0 oz DATE OF STUDY: 03/28/[address]: Celestina Unger 2-DIMENSIONAL: YES M.MODE: YES DOPPLER: YES COLOR FLOW: YES TDS: PORTABLE: YES DEFINITY: BUBBLE STUDY: DIAGNOSIS: TRANSIENT ISCHEMIC ATTACK CARDIAC HISTORY: CATHERIZATION: NO SURGERY: NO PROSTHETIC VALVE: NO PACEMAKER: NO MEASUREMENTS (cm) DIASTOLIC (NORMALS) SYSTOLIC (NORMALS) IVSd 1.3 (0.6-1.2) LA Diam 3.4 (1.9-4.0) LVEF 60-65% LVIDd 5.2 (3.5-5.7) LVIDs 2.9 (2.0-3.5) %FS LVPWd 1.3 (0.6-1.2) Ao Diam 3.1 (2.0-3.7) 2 DIMENSIONAL ASSESSMENT: RIGHT ATRIUM: NORMAL LEFT ATRIUM: NORMAL RIGHT VENTRICLE: NORMAL LEFT VENTRICLE: NORMAL TRICUSPID VALVE: NORMAL MITRAL VALVE: MILD MITRAL REGURGITATION PULMONIC VALVE: NORMAL AORTIC VALVE: NORMAL PERICARDIAL EFFUSION: NONE AORTIC ROOT: NORMAL LEFT VENTRICULAR WALL MOTION: NORMAL DOPPLER/COLOR FLOW: SEE BELOW COMMENTS: 1. NORMAL LEFT VENTRICULAR EJECTION FRACTION 60-65% WITH NORMAL WALL MOTION 2. GRADE I DIASTOLIC DYSFUNCTION 3. MILD MITRAL ANNULAR CALCIFICATION WITH MILD MITRAL REGURGITATION TECHNOLOGIST: JONATHON NOWAK
--- NOTE | 2024-04-03 12:27 | EKG ---
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
--- NOTE | 2024-04-03 12:27 | EKG ---
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
--- NOTE | 2024-04-03 12:27 | EKG ---
Test Date: 2024-03-28 Test Time: 17:43:40 Forecast Analyst: [employer]ION MEASUREMENT RESULTS: Intervals: Rate: 59 [place]: 210 QRSD: 86 QT: 436 QTc: 431 [place]: P: 33 [place]: 210 QRS: 11 T: -87 INTERPRETIVE STATEMENTS: Sinus bradycardia with 1st degree AV block ST & T wave abnormality, consider inferolateral ischemia Abnormal ECG Compared to ECG 03/28/2024 17:38:21 Sinus rhythm no longer present ST (T wave) deviation still present Possible ischemia still present Electronically Signed On 04-03-24 12:17:03 H[facility] by Kenroy Woodward
--- NOTE | 2024-04-03 12:27 | EKG ---
Test Date: 2024-03-28 Test Time: 17:51:28 Ground Support Equipment Assembler: Jahaira Wilson MEASUREMENT RESULTS: Intervals: Rate: 58 MA: 212 QRSD: 84 QT: 430 QTc: 422 [place]: P: 24 MA: 212 QRS: 6 T: -84 INTERPRETIVE STATEMENTS: Sinus bradycardia with 1st degree AV block ST & T wave abnormality, consider inferolateral ischemia Abnormal ECG Compared to ECG 03/28/2024 17:38:21 Sinus rhythm no longer present ST (T wave) deviation still present Possible ischemia still present Electronically Signed On 04-03-24 12:17:01 LABORATORY SECRETARY by Kenroy Woodward
--- NOTE | 2024-04-03 12:27 | EKG ---
Test Date: 2024-03-28 Test Time: 18:18:20 Lokie Engineer: Jahaira Wilson MEASUREMENT RESULTS: Intervals: Rate: 59 [place]: 206 QRSD: 84 QT: 426 QTc: 421 [place]: P: 29 [place]: 206 QRS: 11 T: 265 INTERPRETIVE STATEMENTS: Sinus bradycardia ST & T wave abnormality, consider inferolateral ischemia Abnormal ECG Compared to ECG 03/28/2024 17:38:21 Sinus rhythm no longer present First degree AV block no longer present ST (T wave) deviation still present Possible ischemia still present Electronically Signed On 04-03-24 12:17:00 STAINED GLASS WINDOW DESIGNER by Kenroy Woodward
--- NOTE | 2024-04-03 12:34 | EKG ---
Test Date: 2024-03-27 Test Time: 09:25:12 Ship'S Cook: AMELIE MEASUREMENT RESULTS: Intervals: Rate: 66 [place]: 210 QRSD: 94 QT: 414 QTc: 434 [place]: P: 41 [place]: 210 QRS: 14 T: -78 INTERPRETIVE STATEMENTS: Sinus rhythm with 1st degree AV block ST & T wave abnormality, consider inferolateral ischemia Abnormal ECG No previous ECG available for comparison Electronically Signed On 04-03-24 12:18:56 MARKETING STRATEGIST by Kenroy Woodward
== END 2024-03-29 17:15 | disposition home or self-care (01) | DRG 103 ==
LOC: ER 08:27 → ERHOLD 12:40 → 2ND 19:23
PROVIDERS: ADMIT Hospitalist; ATTEND Internal Medicine
DX: G44.039 Episodic paroxysmal hemicrania, not intractable (principal); G81.94 Hemiplegia, unspecified affecting left nondominant side; E03.9 Hypothyroidism, unspecified; I10 Essential (primary) hypertension; E66.811 Obesity, class 1; M62.838 Other muscle spasm; F17.210 Nicotine dependence, cigarettes, uncomplicated; Z68.33 Body mass index [BMI] 33.0-33.9, adult
CPT/HCPCS: 36415; 70450; 70496; 70498; 70553; 71045; 80048; 80076; 82550; 82565; 82947; 83605; 83690; 83735; 83880; 84100; 84439; 84443; 84484; 85025; 85610; 85730; 93005; 93306; 95816; 96361; 96365; 96375; 97116; 97161; 99285; A9577; J1200; J1650; J2765; J3360; J3475; J7030; Q9967